=== PATIENT | male | born 1960 | race Caucasian/White ===

== ENCOUNTER 2021-12-06 21:19 | Emergency (ER) | payer BC, MEDICARE, SELFPAY ==
[2021-12-06] VITALS (13 sets, daily range): BP systolic 154–164; BP diastolic 75–92; PULSE 62–79; RESP 12–26; O2SAT 86–100
--- NOTE | ~2021-12-06 | CT_ITS ---
EXAMINATION: CT brain wo con DATE: 12/06/2021 22:23 INDICATION: syncope, fall, pthit head unsure of where . TECHNIQUE: Computed tomography (CT) of the head was performed without intravenous contrast. The mA wa s adjusted according to patient size. Iterative reconstruction technique was employed. The dose-lengt h product was 681.00 mGy-cm. COMPARISON: None FINDINGS: No acute intracranial hemorrhage or extra-axial fluid collection. No hydrocephalus, mass, or herniation. No acute ischemic infarct. Unremarkable dural venous sinus attenuation. No acute osseous abnormality. The aerated spaces are clear. Mild atrophy and chronic white matter change. Atherosclerotic intracranial calcifications. Old right basal ganglia lacunar infarct. IMPRESSION: No acute intracranial process. Reviewed, dictated and finalized at location [facility].
[2021-12-06] MEDS: SODIUM CHLORIDE 0.9% IV 1,000 ML 999 ML IV CONT (21:55)
--- NOTE | 2021-12-06 21:57 | ED.GENADULT ---
HPI - General Adult General Chief complaint: Syncope Stated complaint: syncopal episode at [facility] and ETOH Time Seen by Provider: 12/06/21 21:21 History of Present Illness HPI narrative: 61-year-old male presenting the emergency department for evaluation after having a syncopal episode at the [facility]. Patient reports he had been drinking heavily since approximately 2 PM. Bystanders state that the patient leaned forward then fell backward. Upon arrival emergency department patient is alert but heavily intoxicated. Patient denies any pain or complaints. Patient is unsure if he struck his head. Related Data Allergies Allergy/AdvReac Type Severity Reaction Status Date / Time adhesive tape Allergy Severe SKIN CAME Verified 12/19/15 08:34 OFF Review of Systems Review of Systems: CONSTITUTIONAL: Denies fever, chills, or sweats. EYES: Denies visual changes, redness, or discharge. ENT: Denies rhinorrhea, congestion, sore throat, or otalgia. CARDIOVASCULAR: Denies chest pain, palpitations, or edema. RESPIRATORY: Denies cough or dyspnea. GASTROINTESTINAL: Denies abdominal pain, nausea, vomiting, or diarrhea. GENITOURINARY: Denies dysuria or hematuria. SKIN: Denies rash or itching. MUSCULOSKELETAL: Denies back pain, joint pain, or myalgia. NEUROLOGIC: Denies headache, numbness, or weakness. Exam Narrative: APPEARANCE: Well appearing, no pain, no distress, well-nourished. HEAD: normocephalic, atraumatic. EYES: PERRLA/EOMI, conjunctivae clear. NOSE: Normal no drainage EARS:TMS clear with good light reflex. THROAT: Pharynx clear, no exudate. NECK: Supple. No adenopathy, no masses. RESPIRATORY: Airway patent, respirations nonlabored. Clear to auscultation bilaterally, no rales, rhonchi, wheezing. CARDIOVASCULAR: Regular rate and rhythm without murmurs rubs or gallops. ABDOMINAL: Soft, nontender, nondistended, normal bowel sounds MUSCULOSKELETAL: Moves all extremities. Strength/ROM intact, No edema, No calf tenderness. NEURO: Alert. Cranial nerves II through XII intact. Grossly intact SKIN: Warm, dry. Normal Color Course Course Emergency Course: Patient's head CT was negative. Patient's blood alcohol was 345. Patient was requesting discharge to home. At time of discharge patient's gait was still unstable. Patient was adamant about leaving. Patient's was alert oriented and appeared clinically sober. The was comfortable with the patient being discharged. Patient was signed out AMA. Vital Signs Vital signs: Vital Signs Pulse Rate 71 12/06/21 21:19 Respiratory Rate 17 12/06/21 21:19 Blood Pressure 164/92 H 12/06/21 21:19 Pulse Oximetry 96 12/06/21 21:19 Oxygen Delivery Room Air 12/06/21 21:19 Pulse Rate 78 12/07/21 00:38 Respiratory Rate 20 12/07/21 00:38 Blood Pressure 154/75 H 12/06/21 21:47 Pulse Oximetry 97 12/07/21 00:38 Oxygen Delivery Room Air 12/06/21 21:19 Medical Decision Making Vital Signs Vital Signs: Vital Signs Pulse Rate 71 12/06/21 21:19 Respiratory Rate 17 12/06/21 21:19 Blood Pressure 164/92 H 12/06/21 21:19 Pulse Oximetry 96 12/06/21 21:19 Oxygen Delivery Room Air 12/06/21 21:19 Pulse Rate 78 12/07/21 00:38 Respiratory Rate 20 12/07/21 00:38 Blood Pressure 154/75 H 12/06/21 21:47 Pulse Oximetry 97 12/07/21 00:38 Oxygen Delivery Room Air 12/06/21 21:19 Lab Data Lab results reviewed: Yes I reviewed the patient's lab results. Result diagrams: 12/06/21 21:55 12/06/21 21:55 Labs: Lab Results 12/06/21 12/06/21 12/06/21 Range/Units 21:55 21:55 21:55 WBC 7.3 (4.5-10.0) K/mm3 RBC 4.73 (4.6-6.20) M/mm3 Hgb 13.8 L (14.0-18.0) g/dL Hct 41.5 L (42.0-52.0) % MCV 87.7 (80-100) fl MCH 29.2 (26-34) pg MCHC 33.3 (32-36) g/dl RDW 13.7 (11.5-14.5) % Plt Count 303 (150-375) k/mm3 MPV 8.4 (7.4-10.4) fl Immature Gran % (Auto) 0.3 (0-0.5) % [place]
[2021-12-06 22:01] LABS: Basophils Absolute Auto 0.1 K/mm3 (0.0-0.1); Basophils Percent Auto 0.8 % (0.2-1.2); Eosinophils Absolute Auto 0.2 K/mm3 (0-0.3); Eosinophils Percent Auto 2.3 % (0-4.4); Hematocrit 41.5 % (42.0-52.0); Hemoglobin 13.8 g/dL (14.0-18.0); Immature Granulocyte Absolute 0.02 K/mm3 (0.00-0.031); Immature Granulocyte Percent A 0.3 % (0-0.5); Lymphocytes Absolute Auto 1.62 K/mm3 (0.9-3.2); Lymphocytes Percent Auto 22.1 % (18.3-44.2); Mean Corpuscular HGB Conc 33.3 g/dl (32-36); Mean Corpuscular Hemoglobin 29.2 pg (26-34); Mean Corpuscular Volume 87.7 fl (80-100); Mean Platelet Volume 8.4 fl (7.4-10.4); Monocytes Absolute Auto 0.5 K/mm3 (0.1-0.6); Monocytes Percent Auto 6.4 % (2.6-8.5); Neutrophils Percent Auto 68.1 % (45.5-73.1); Platelet Count Result 303 k/mm3 (150-375); Red Blood Count 4.73 M/mm3 (4.6-6.20); Red Cell Distribution Width 13.7 % (11.5-14.5); White Blood Count 7.3 K/mm3 (4.5-10.0)
[2021-12-06 22:11] LABS: Alanine Aminotransferase 22 U/L (6-50); Albumin Level 4.6 g/dL (3.5-5.1); Alkaline Phosphatase 62 U/L (38-126); Anion Gap 16 mmol/L (8-16); Aspartate Amino Transferase 30 U/L (17-59); Bilirubin,Total 0.3 mg/dL (0.2-1.3); Blood Urea Nitrogen 10 mg/dL (9-20); Calcium 9.2 mg/dL (8.4-10.2); Carbon Dioxide 21 mmol/L (22-30); Chloride 106 mmol/L (98-107); Estimated Glomerular Filt Rate > 60; Glucose 129 mg/dL (65-110); Lactic Acid Reflex 2.3 mmol/L (0.7-2.0); Potassium 3.8 mmol/L (3.4-5.0); Sodium 143 mmol/L (137-145)
[2021-12-06 22:50] LABS: Appearance Urine Clear (Clear); Bilirubin Urine Negative (Negative); Blood Urine Negative (Negative); Color Urine Yellow (Yellow); Glucose Urine UA Negative (Negative); Ketones Urine Negative (Negative); Leukocyte Esterase Ur Negative LEU/UL (Negative); Nitrate Urine Negative (Negative); Protein Urine Negative (Negative); Specific Grav Ur <= 1.005 (1.001-1.035); Urobilinogen Urine 0.2 mg/dL (<2.0)
[2021-12-06 22:55] LABS: Mucus Urine Rare /lpf; Squamous Epithelial Cell Urine Rare /hpf (Few); WBC Urine 0-3 /hpf
--- NOTE | 2021-12-06 23:00 | PC.NURSE ---
Transferred care to STEVE Valero
[2021-12-06 23:06] LABS: Add Urine Microscopic? NO
--- NOTE | 2021-12-07 00:25 | PC.NURSE ---
Pt and requesting that pt be d/c and wanting to go home. PT removed IV byself. Pt ambulated in room and can bare weight. willing to take pt home at this time and feel safe.
[2021-12-07 00:33] LABS: Ethanol 345 mg/dL (<10)
[2021-12-07 00:38] VITALS: PULSE 78; RESP 20; O2SAT 97
[2021-12-07 00:59] LABS: Reflex Lactic Acid Yes or No Add Lactic
== END 2021-12-07 00:39 | disposition left against medical advice (07) ==
PROVIDERS: Emergency Provider Emergency Medicine; PCP Internal Medicine
DX: R55 Syncope and collapse (principal); F10.129 Alcohol abuse with intoxication, unspecified; Y90.8 Blood alcohol level of 240 mg/100 ml or more
CPT/HCPCS: 36415; 70450; 80053; 80307; 81003; 83605; 85025; 96360; 96361; 99284; J7030

== ENCOUNTER 2022-06-28 18:15 | Emergency (ER) | payer BC, MEDICARE, SELFPAY ==
[2022-06-28] VITALS (7 sets, daily range): BP systolic 129–159; BP diastolic 91–102; PULSE 81–98; RESP 13–18; TEMP 36.1–36.7; O2SAT 96–99
--- NOTE | ~2022-06-28 | CT_ITS ---
EXAMINATION: CT abdomen pelvis w con DATE: 06/28/2022 23:00 INDICATION: Diffuse abdominal pain, nausea, vomiting and diarrhea. TECHNIQUE: Computed tomography (CT) of the abdomen and pelvis was performed with 100 mL Omnipaque-350 intravenous contrast. Automated exposure control and iterative reconstruction technique were employe d. The dose-length product was 1497.91 mGy-cm. COMPARISON: None FINDINGS: Calcified and noncalcified pulmonary nodules at the bilateral lower lungs, largest noncalcified nodul e a 5-6 mm subpleural nodule in the right lower lobe. Heart size is normal. No pericardial or pleural effusion. Air-fluid level in the nondependent the gastric antrum separate from additional gas at the gastric body pain masslike intraluminal filling defect most likely ingested material. Cholecystectom y clips at the gallbladder fossa. Liver, spleen, pancreas, bilateral adrenal glands and kidneys are n ormal. Postoperative change of prior umbilical hernia mesh repair. There few scattered colonic divert icula without adjacent inflammatory stranding to suggest diverticulitis. Small amount of fluid in the colon consistent with provided history of diarrhea. No bowel obstruction or abnormal bowel wall thic kening. Normal appendix. Bladder is normal. No free intraperitoneal gas or fluid. No pathologically e nlarged abdominal or pelvic lymphadenopathy. Severe lumbar and lower thoracic spondylosis. IMPRESSION: 1. Nonspecific diarrhea. No bowel obstruction or other acute abdominal/pelvic process. 2. Masslike intraluminal filling defect in the body of the stomach most likely related to ingested ma terial but would consider follow-up upper GI series or endoscopy. 3. A few scattered small pulmonary nodules, the largest noncalcified nodule in the right lower lobe m easuring 5-6 mm . If the patient is low risk for lung cancer, no follow-up is needed. If the patient is high risk (i.e., history of smoking or asbestos or significant radiation exposure), optional follo w-up chest CT could be considered at 12 months. Reviewed, dictated and finalized at location A. IMPRESSION: 1. Nonspecific diarrhea. No bowel obstruction or other acute abdominal/pelvic p rocess. 2. Masslike intraluminal filling defect in the body of the stomach most likely related to ingested material but would consider follow-up upper GI series or en doscopy. 3. A few scattered small pulmonary nodules, the largest noncalcified nodule in the right lower lobe measuring 5-6 mm . If the patient is low risk for lung can cer, no follow-up is needed. If the patient is high risk (i.e., history of smok ing or asbestos or significant radiation exposure), optional follow-up chest CT could be considered at 12 months.
[2022-06-28 19:31] LABS: Basophils Percent Auto 0.4 % (0.2-1.2); Eosinophils Absolute Auto 0.1 K/mm3 (0-0.3); Eosinophils Percent Auto 1.4 % (0-4.4); Hemoglobin 15.1 g/dL (14.0-18.0); Immature Granulocyte Absolute 0.03 K/mm3 (0.00-0.031); Immature Granulocyte Percent A 0.4 % (0-0.5); Lymphocytes Percent Auto 17.8 % (18.3-44.2); Mean Corpuscular HGB Conc 33.6 g/dl (32-36); Mean Corpuscular Hemoglobin 29.3 pg (26-34); Mean Corpuscular Volume 87.4 fl (80-100); Monocytes Absolute Auto 0.6 K/mm3 (0.1-0.6); Monocytes Percent Auto 7.9 % (2.6-8.5); Neutrophils Absolute Auto 5.7 K/mm3 (1.3-6.7); Neutrophils Percent Auto 72.1 % (45.5-73.1); Platelet Count Result 288 k/mm3 (150-375); Red Blood Count 5.15 M/mm3 (4.6-6.20); Red Cell Distribution Width 13.6 % (11.5-14.5); White Blood Count 7.9 K/mm3 (4.5-10.0)
[2022-06-28 19:41] LABS: Alanine Aminotransferase 100 U/L (6-50); Albumin Level 4.8 g/dL (3.5-5.1); Alkaline Phosphatase 65 U/L (38-126); Anion Gap 11 mmol/L (8-16); Aspartate Amino Transferase 72 U/L (17-59); Bilirubin,Total 0.9 mg/dL (0.2-1.3); Blood Urea Nitrogen 15 mg/dL (9-20); Calcium 9.3 mg/dL (8.4-10.2); Carbon Dioxide 22 mmol/L (22-30); Chloride 104 mmol/L (98-107); Estimated CRCL calculation 95 ml/min; Estimated Glomerular Filt Rate > 60; Glucose 128 mg/dL (65-110); Lipase 102 U/L (23-300); Potassium 3.8 mmol/L (3.4-5.0); Sodium 137 mmol/L (137-145)
[2022-06-28 20:01] LABS: Appearance Urine Clear (Clear); Bacteria Urine None Seen /hpf; Bilirubin Urine 1+ (Negative); Blood Urine Negative (Negative); Color Urine Dark Yellow (Yellow); Glucose Urine UA Negative (Negative); Ketones Urine Trace mg/dL (Negative); Leukocyte Esterase Ur Negative LEU/UL (Negative); Mucus Urine Present /lpf; Nitrate Urine Negative (Negative); Protein Urine 2+ mg/dL (Negative); RBC Urine 0-2 /hpf (0-2); Specific Grav Ur 1.032 (1.001-1.035); Squamous Epithelial Cell Urine Few /hpf (Few); WBC Urine 0-5 /hpf; pH Urine 5.5 (5.0-9.0)
[2022-06-28 20:02] LABS: Add Urine Microscopic? YES
[2022-06-28] MEDS: FAMOTIDINE 20 MG/2 ML VIAL IV PUSH (21:36)
[2022-06-28] MEDS: ONDANSETRON INJ 4 MG/2 ML VIAL IV PUSH (21:36)
[2022-06-28] MEDS: LACTATED RINGERS 1,000 ML 999 ML IV CONT (21:36)
--- NOTE | 2022-06-28 21:36 | ED.NAVMDI ---
HPI - Nausea/Vomiting/Diarrhea General Chief complaint: Nausea/Vomiting/Diarrhea Stated complaint: diarrhea x 1.5 weeks Time Seen by Provider: 06/28/22 20:40 History of Present Illness HPI Narrative: Patient is a 62-year-old male here for evaluation of diarrhea, nausea and vomiting over the past 10 days. Patient states that he has had numerous episodes per day of profuse watery diarrhea and several episodes of projectile vomiting. He has had diffuse abdominal cramping as well. He is attempted Imodium without relief of his symptoms and has also been trying to take small sips of Gatorade. Decided to come in today due to longevity of his symptoms and feels he is getting dehydrated. He had [employer] prior to onset of his symptoms and believed to before the sauce that he had tasted sour. He has a history of cholecystectomy several years ago but no other abdominal surgeries. He has had no fevers or chills. No recent antibiotic use. Related Data Allergies Allergy/AdvReac Type Severity Reaction Status Date / Time adhesive tape Allergy Severe SKIN CAME Verified 12/19/15 08:34 OFF Review of Systems Review of Systems: Gen.: Denies fevers or chills Eyes: Denies eye pain or visual change ENT: Denies congestion Respiratory: Denies shortness of breath or cough CV: Denies chest pain or palpitations GI: Reports abdominal pain, nausea, vomiting and diarrhea denies burning, urgency, frequency or hematuria Musculoskeletal: Denies back pain or muscle pain Neuro: Denies numbness, tingling, weakness or focal weakness Skin: Denies rash Except as documented, all other systems reviewed and negative Exam Narrative: APPEARANCE: Well appearing, no pain in distress, well-nourished. Obese. Head: Normocephalic and atraumatic. EYES: PERRLA/EOMI, conjunctivae clear NOSE: No nasal drainage EARS: External ear normal in appearance THROAT: Oropharynx is clear. Mucous membranes are moist. NECK: Supple. No adenopathy, no masses. RESPIRATORY: Airway patent, respirations nonlabored. Clear to auscultation bilaterally, no rales, rhonchi, wheezing. CARDIOVASCULAR: Regular rate and rhythm without murmurs, rubs, or gallops. ABDOMINAL: High-pitched bowel sounds. Minimal tenderness to palpation on the right side of his abdomen with no rebound tenderness or guarding. MUSCULOSKELETAL: Extremities are warm and well-perfused. Moves all extremities well. No edema. NEURO: Normal speech. No focal neurologic deficits. SKIN: Skin is warm and dry. No rashes. PSYCHIATRIC: Normal affect/mood. Course Vital Signs Vital signs: Vital Signs Temperature 97 F L 06/28/22 19:13 Pulse Rate 91 06/28/22 19:13 Respiratory Rate 16 06/28/22 19:13 Blood Pressure 142/94 H 06/28/22 19:13 Pulse Oximetry 99 06/28/22 19:13 Oxygen Delivery Room Air 06/28/22 19:13 Temperature 98.1 F 06/28/22 20:51 Pulse Rate 90 06/28/22 23:06 Respiratory Rate 18 06/28/22 23:06 Blood Pressure 129/91 H 06/28/22 23:06 Pulse Oximetry 96 06/28/22 23:06 Oxygen Delivery Room Air 06/28/22 19:13 MDM - Nausea/Vomiting/Diarrhea MDM Narrative Medical decision making narrative: 62-year-old male here for evaluation of nausea vomiting and diarrhea over the past several days after eating what he describes as suspicious [employer]. He is nontoxic in appearance, has slight abdominal tenderness on exam. His basic labs are unremarkable. His electrolytes are normal. Bicarb is normal. Lactic acid is normal. C. difficile is negative. Ct abdomen pelvis with no evidence for bowel obstruction but there is contents in his stomach that the radiologist is commenting could either be food or a gastric mass. Discussed these findings with the patient, he does have risk factors for gastric malignancy. Spoke with Dr. Acevedo from GI who agrees with plan for outpatient management and follow-up as patient will likely need an upper endoscopy. He is stable for discharge home at t
[2022-06-29 00:17] LABS: Toxigenic C. Diff NEGATIVE (NEGATIVE)
[2022-06-29 00:32] LABS: Lactic Acid Reflex 0.9 mmol/L (0.7-2.0)
[2022-06-29] MEDS: DIPHENOXYLATE/ATROPINE (*CRX) 2.5 MG TABLET 1 TABLET PO (00:36)
[2022-06-29 01:23] VITALS: BP 146/93; PULSE 84; RESP 20; TEMP 36.7; O2SAT 97
== END 2022-06-29 01:31 | disposition home or self-care (01) ==
PROVIDERS: Physician Assistant; Emergency Provider Physician Assistant; PCP Internal Medicine
DX: K52.9 Noninfective gastroenteritis and colitis, unspecified (principal)
CPT/HCPCS: 36415; 74177; 80053; 81001; 83605; 83690; 85025; 87045; 87269; 87272; 87427; 87493; 96361; 96374; 96375; 99284; A9270; J2405; J7120; Q9967